=== PATIENT | female | born 1950 | race Caucasian/White ===

== ENCOUNTER → 2016-11-20 | Outpatient (CLI) | payer OTHER | END | disposition home or self-care (01) | LOC: WOUND 12:52 | PROVIDERS: ATTEND Physician Assistant | DX: L98.491 Non-pressure chronic ulcer of skin of other sites limited to breakdown of skin (principal); N61.1 Abscess of the breast and nipple; I10 Essential (primary) hypertension; J45.909 Unspecified asthma, uncomplicated; L73.2 Hidradenitis suppurativa; Z87.891 Personal history of nicotine dependence; Z72.89 Other problems related to lifestyle | CPT/HCPCS: 97597; 99204 ==

== ENCOUNTER → 2016-11-27 | Outpatient (CLI) | payer OTHER | END | disposition home or self-care (01) | LOC: WOUND 13:30 | PROVIDERS: ATTEND Physician Assistant | DX: L98.491 Non-pressure chronic ulcer of skin of other sites limited to breakdown of skin (principal); L73.2 Hidradenitis suppurativa; J45.909 Unspecified asthma, uncomplicated; I10 Essential (primary) hypertension; Z87.891 Personal history of nicotine dependence; Z72.89 Other problems related to lifestyle | CPT/HCPCS: 97597 ==

== ENCOUNTER → 2018-12-05 | Outpatient (CLI) | payer MEDICARE | END | disposition home or self-care (01) | LOC: CFH 12:00 | PROVIDERS: ATTEND Family Medicine | DX: Z12.31 Encounter for screening mammogram for malignant neoplasm of breast (principal) | CPT/HCPCS: 77063; 77067 ==